=== PATIENT | female | born 1970 | race Native Hawaiian/Other Pacific Islander ===

== ENCOUNTER 2016-07-05 10:42 | Outpatient (CLI) | payer OTHER ==
[2016-07-05 11:13] LABS: POTASSIUM 3.8 mmol/L (3.6-5.2); SODIUM 136 mmol/L (136-145)
== END 2016-07-05 19:14 | disposition home or self-care (01) ==
LOC: LABW 10:42
PROVIDERS: Internal Medicine Endocrinology, Diabetes & Metabolism
DX: E21.0 Primary hyperparathyroidism (principal)
CPT/HCPCS: 36415; 80053; 82306; 82330; 82340

== ENCOUNTER 2016-07-11 09:18 | Outpatient (CLI) | payer OTHER ==
[~2016-07-11] VITALS: Ht 165.1 cm; Wt 127.5 kg
[2016-07-11 10:20] VITALS: BP 119/64; TEMP 99
[2016-07-11 13:10] VITALS: BP 112/75; TEMP 98.6
== END 2016-07-11 18:59 | disposition home or self-care (01) ==
LOC: INF 09:18 → US 09:18 → INF 18:59
DX: E21.0 Primary hyperparathyroidism (principal); N20.0 Calculus of kidney; E87.6 Hypokalemia
CPT/HCPCS: 96365; 96366; J0610

== ENCOUNTER 2016-07-12 11:29 | Outpatient (CLI) | payer OTHER | END 2016-07-12 19:23 | disposition home or self-care (01) | LOC: LABW 11:29 | DX: E87.6 Hypokalemia (principal) | CPT/HCPCS: 36415; 82310 ==

== ENCOUNTER 2016-07-16 15:10 | Observation (INO) | payer OTHER ==
[~2016-07-16] VITALS: Ht 165.1 cm; Wt 125.2 kg
[2016-07-16 16:40] VITALS: BP 126/67; TEMP 98.8; Ht 165.1 cm; Wt 125.2 kg
[2016-07-16] MEDS ORDERED: TIZA4TAB5 PO (16:57)
[2016-07-16] MEDS ORDERED: UNITH DIRECT25 MCG PO (16:58)
[2016-07-16] MEDS ORDERED: HYDROCHLOROT12.5 M1 PO (16:58)
[2016-07-16] MEDS ORDERED: LISI10TA11 PO (16:58)
[2016-07-16] MEDS ORDERED: GRALISE600 MG PO (16:58)
[2016-07-16] MEDS ORDERED: PROVENTIL IN (16:59)
[2016-07-16] MEDS ORDERED: ALBU90AE13 INH (16:59)
[2016-07-16] MEDS ORDERED: CALCIUM + D600 MG PO (16:59)
[2016-07-16 17:00] LABS: PLATELET COUNT 253 K/uL (152-353)
[2016-07-16 17:14] LABS: POTASSIUM 3.5 mmol/L (3.6-5.2); SODIUM 137 mmol/L (136-145)
[2016-07-16 19:59] VITALS: BP 119/69; TEMP 97.4
[2016-07-17 00:02] VITALS: BP 106/49; TEMP 97.9
[2016-07-17 04:00] VITALS: BP 116/62; TEMP 98.1
[2016-07-17 07:56] VITALS: BP 93/50; TEMP 98.3
[2016-07-17 08:38] LABS: PLATELET COUNT 247 K/uL (152-353)
[2016-07-17 09:28] LABS: POTASSIUM 3.6 mmol/L (3.6-5.2); SODIUM 135 mmol/L (136-145)
--- NOTE | 2016-07-17 11:53 | NUR ---
IV SITE D/C'D WITH TIP INTACT AND SITE CARE DONE. D/C INSTRUCTIONS GIVEN TO PT AND SHE VERBALIZES UNDERSTANDING. PT AMBULATORY OUT WITH NAD. PT REFUSED W/C
== END 2016-07-17 12:00 | disposition home or self-care (01) ==
LOC: MED/SURG 15:10
PROVIDERS: ADMIT Family Medicine
DX: R07.89 Other chest pain (principal); J44.9 Chronic obstructive pulmonary disease, unspecified; E21.3 Hyperparathyroidism, unspecified; R25.2 Cramp and spasm; E83.51 Hypocalcemia
CPT/HCPCS: 36415; 36591; 80053; 82330; 82550; 83735; 84484; 85027; 85610; 85730; 93005; 94760; 96372; 99220; G0378; G0379; J1650

== ENCOUNTER 2016-09-26 17:00 | Outpatient (CLI) | payer OTHER ==
[~2016-09-26 17:00] MED LIST: ALBU90AE13 INH; CALCIUM + D600 MG PO; GRALISE600 MG PO; HYDROCHLOROT12.5 M1 PO; LISI10TA11 PO; PROVENTIL IN; TIZA4TAB5 PO; UNITH DIRECT25 MCG PO
== END 2016-09-26 18:00 | disposition home or self-care (01) ==
LOC: RAD 17:00
DX: J20.9 Acute bronchitis, unspecified (principal)

== ENCOUNTER 2016-11-05 16:54 | Outpatient (CLI) | payer OTHER | END 2016-11-05 19:15 | disposition home or self-care (01) | LOC: CT 16:54 | DX: N20.0 Calculus of kidney (principal) ==

== ENCOUNTER 2017-12-02 19:31 | Observation (INO) | payer OTHER ==
[~2017-12-02] VITALS: Ht 165.1 cm; Wt 115.0 kg
[2017-12-02 19:55] VITALS: BP 160/94; TEMP 98.3
[2017-12-02 20:45] LABS: PLATELET COUNT 273 K/uL (152-353)
[2017-12-02 20:54] LABS: POTASSIUM 3.8 mmol/L (3.6-5.2)
[2017-12-03] VITALS (14 sets, daily range): BP systolic 108–137; BP diastolic 57–99; TEMP 97.8–99.6; Ht 165.1 cm; Wt 115.0 kg
[2017-12-03] MEDS ORDERED: MONT10TA PO (01:39)
[2017-12-03] MEDS ORDERED: UNITH DIRECT50 MCG PO (01:40)
[2017-12-03] MEDS ORDERED: RANI150T78 PO (01:41)
[2017-12-03] MEDS ORDERED: TIZA4TAB5 PO (01:43)
[2017-12-03] MEDS ORDERED: DULOXETINE HCL60 MG PO (01:44)
[2017-12-03] MEDS ORDERED: HYDR10TA47A PO (01:46)
[2017-12-03 05:26] LABS: PLATELET COUNT 220 K/uL (152-353)
[2017-12-04] VITALS: BP 109/59; TEMP 98.7
[2017-12-04 04:09] VITALS: BP 118/61; TEMP 99.3
[2017-12-04 04:34] LABS: PLATELET COUNT 246 K/uL (152-353)
[2017-12-04 04:47] LABS: POTASSIUM 3.5 mmol/L (3.6-5.2)
[2017-12-04 07:53] VITALS: BP 108/54; TEMP 98.2
== END 2017-12-04 12:11 | disposition home or self-care (01) ==
LOC: ED 19:31 → MED/SURG 23:44
PROVIDERS: Family Medicine; ADMIT Student in an Organized Health Care Education/Training Program
PROC: 0DTJ4ZZ Resection of Appendix, Percutaneous Endoscopic Approach (ICD-10-PCS; principal; 2017-12-03)
DX: K35.89 Other acute appendicitis (principal); M32.8 Other forms of systemic lupus erythematosus; G89.29 Other chronic pain; R10.31 Right lower quadrant pain
CPT/HCPCS: 36415; 80048; 80053; 81000; 82150; 83690; 85027; 96361; 96365; 96372; 96375; 99220; 99284; G0378; J0132; J0330; J0461; J1100; J1170; J1644; J1885; J2001; J2250; J2405; J2543; J2550; J2704; J2710; J3010; J3490; Q9963

== ENCOUNTER 2018-01-24 14:29 | Outpatient (CLI) | payer OTHER ==
[~2018-01-24 14:29] MED LIST changes: +DULOXETINE HCL60 MG PO; +HYDR10TA47A PO; +MONT10TA PO; +RANI150T78 PO; +UNITH DIRECT50 MCG PO
[2018-01-24 15:31] LABS: PLATELET COUNT 239 K/uL (152-353)
[2018-01-24 15:42] LABS: POTASSIUM 3.6 mmol/L (3.6-5.2)
== END 2018-01-24 23:26 | disposition home or self-care (01) ==
LOC: LABW 14:29
PROVIDERS: Family Medicine
DX: I10 Essential (primary) hypertension (principal); E21.3 Hyperparathyroidism, unspecified; E78.5 Hyperlipidemia, unspecified; E55.9 Vitamin D deficiency, unspecified; E53.9 Vitamin B deficiency, unspecified
CPT/HCPCS: 36415; 80053; 80061; 81000; 82306; 82607; 84443; 85027

== ENCOUNTER 2018-02-06 08:03 | Outpatient (CLI) | payer OTHER | END 2018-02-06 22:07 | disposition home or self-care (01) | LOC: RESP 08:03 | DX: I10 Essential (primary) hypertension (principal) | CPT/HCPCS: 93306 ==

== ENCOUNTER 2018-03-17 14:28 | Emergency (ER) | payer OTHER ==
[~2018-03-17] VITALS: Ht 165.1 cm; Wt 120.2 kg
[2018-03-17 14:35] VITALS: TEMP 98
[2018-03-17 15:16] LABS: PLATELET COUNT 239 K/uL (152-353)
[2018-03-17 15:19] LABS: POTASSIUM 3.7 mmol/L (3.6-5.2); SODIUM 142 mmol/L (136-145)
[2018-03-17 17:04] VITALS: BP 131/84
== END 2018-03-17 17:04 | disposition home or self-care (01) ==
LOC: ED 14:28
PROVIDERS: Emergency Medicine
DX: R07.89 Other chest pain (principal)
CPT/HCPCS: 36415; 80053; 82550; 84484; 85027; 93005; 99283

== ENCOUNTER 2018-04-06 17:44 | Emergency (ER) | payer OTHER ==
[~2018-04-06] VITALS: Ht 165.1 cm; Wt 120.2 kg
[2018-04-06 18:51] LABS: PLATELET COUNT 254 K/uL (152-353)
[2018-04-06 19:07] LABS: POTASSIUM 3.6 mmol/L (3.6-5.2)
[2018-04-06 20:31] VITALS: BP 117/76; TEMP 98.3
== END 2018-04-06 20:32 | disposition home or self-care (01) ==
LOC: ED 17:44
PROVIDERS: Family Medicine
DX: K44.9 Diaphragmatic hernia without obstruction or gangrene (principal); M47.896 Other spondylosis, lumbar region
CPT/HCPCS: 80053; 81000; 85027; 96372; 96374; 99284; J2175; J2405

== ENCOUNTER 2018-07-10 14:29 | Outpatient (CLI) | payer OTHER ==
[2018-07-10 15:11] LABS: POTASSIUM 3.8 mmol/L (3.6-5.2)
[2018-07-10 16:10] LABS: PLATELET COUNT 273 K/uL (152-353)
== END 2018-07-10 20:41 | disposition home or self-care (01) ==
LOC: LABW 14:29
PROVIDERS: Family Medicine
DX: N95.9 Unspecified menopausal and perimenopausal disorder (principal); R10.0 Acute abdomen
CPT/HCPCS: 36415; 80053; 82306; 82607; 82670; 83001; 84402; 84403; 84436; 84443; 84481; 85027; 86140; 86318; 86376

== ENCOUNTER 2018-07-16 11:11 | Outpatient (CLI) | payer OTHER | END 2018-07-16 19:46 | disposition home or self-care (01) | LOC: RAD 11:11 | DX: M54.17 Radiculopathy, lumbosacral region (principal) ==

== ENCOUNTER 2018-09-02 11:47 | Emergency (ER) | payer OTHER ==
[~2018-09-02] VITALS: Ht 165.1 cm; Wt 122.5 kg
[2018-09-02 11:54] VITALS: TEMP 97.7
[2018-09-02] MEDS ORDERED: UNITH DIRECT75 MCG PO (12:08)
[2018-09-02] MEDS ORDERED: SIMV20TA2 PO (12:09)
[2018-09-02 13:00] LABS: PLATELET COUNT 249 K/uL (152-353)
[2018-09-02 13:10] LABS: POTASSIUM 3.7 mmol/L (3.6-5.2)
[2018-09-02 15:20] VITALS: BP 145/68
== END 2018-09-02 15:20 | disposition home or self-care (01) ==
LOC: ED 11:47
PROVIDERS: Family Medicine
DX: K29.70 Gastritis, unspecified, without bleeding (principal); M54.9 Dorsalgia, unspecified
CPT/HCPCS: 36415; 80053; 81000; 85027; 96374; 96375; 99284; J1885; J2405; J3490

== ENCOUNTER 2018-09-09 17:27 | Outpatient (CLI) | payer OTHER ==
[~2018-09-09 17:27] MED LIST changes: +SIMV20TA2 PO; +UNITH DIRECT75 MCG PO
[2018-09-09 18:01] LABS: PLATELET COUNT 271 K/uL (152-353)
== END 2018-09-09 20:33 | disposition home or self-care (01) ==
LOC: LABW 17:27
PROVIDERS: Nurse Practitioner Family
DX: R53.83 Other fatigue (principal); E86.0 Dehydration
CPT/HCPCS: 36415; 81000; 85027; 85651; 86060; 86140

== ENCOUNTER 2018-11-10 16:16 | Outpatient (CLI) | payer OTHER ==
[2018-11-10 16:48] LABS: PLATELET COUNT 273 K/uL (152-353)
[2018-11-10 17:07] LABS: POTASSIUM 4.2 mmol/L (3.6-5.2)
== END 2018-11-10 23:28 | disposition home or self-care (01) ==
LOC: LABW 16:16
PROVIDERS: Family Medicine
DX: N95.9 Unspecified menopausal and perimenopausal disorder (principal)
CPT/HCPCS: 36415; 80053; 82306; 82607; 82670; 83001; 84402; 84403; 84436; 84443; 84481; 85027; 86140; 86376

== ENCOUNTER 2018-12-18 15:18 | Outpatient (CLI) | payer OTHER | END 2018-12-18 20:21 | disposition home or self-care (01) | LOC: LABW 15:18 | DX: R79.82 Elevated C-reactive protein (CRP) (principal) | CPT/HCPCS: 36415; 86038; 86431 ==

== ENCOUNTER 2019-03-04 08:59 | Outpatient (CLI) | payer OTHER | END 2019-03-04 19:04 | disposition home or self-care (01) | LOC: RESP 08:59 | DX: I34.1 Nonrheumatic mitral (valve) prolapse (principal) | CPT/HCPCS: 93306 ==

== ENCOUNTER 2019-07-05 01:50 | Emergency (ER) | payer OTHER ==
[~2019-07-05] VITALS: Ht 165.1 cm; Wt 122.5 kg
[2019-07-05 02:13] LABS: PLATELET COUNT 246 K/uL (152-353)
[2019-07-05 02:27] LABS: POTASSIUM 3.8 mmol/L (3.6-5.2)
[2019-07-05 03:29] VITALS: BP 117/69; TEMP 97.7
== END 2019-07-05 03:29 | disposition home or self-care (01) ==
LOC: ED 01:50
PROVIDERS: Hospitalist
DX: K21.9 Gastro-esophageal reflux disease without esophagitis (principal); K29.70 Gastritis, unspecified, without bleeding
CPT/HCPCS: 36415; 80053; 81000; 81025; 82150; 83690; 85027; 96374; 96375; 99284; J1885; J2270; J2405

== ENCOUNTER 2020-06-24 11:32 | Observation (INO) | payer OTHER ==
[~2020-06-24] VITALS: Ht 172.7 cm; Wt 133.0 kg
[2020-06-24 12:14] VITALS: BP 155/81; TEMP 99.3; Ht 172.7 cm; Wt 133.0 kg
[2020-06-24] MEDS ORDERED: PAROXETINE40 MG PO (12:34)
[2020-06-24] MEDS ORDERED: GRALISE600 MG PO (12:35)
[2020-06-24] MEDS ORDERED: HYDROCHLOROT12.5 M1 PO (12:35)
[2020-06-24] MEDS ORDERED: BUDE1AER5 INH (12:37)
[2020-06-24] MEDS ORDERED: PANTOPRAZOLE 40MG TA PO (12:38)
[2020-06-24] MEDS ORDERED: ALBUTEROL0.083 % PO (12:40)
[2020-06-24 12:42] LABS: PLATELET COUNT 255 K/uL (152-353)
[2020-06-24 13:21] LABS: POTASSIUM 3.4 mmol/L (3.6-5.2)
[2020-06-24 16:08] VITALS: BP 135/69; TEMP 98.2
[2020-06-24 20:00] VITALS: BP 147/80; TEMP 98
[2020-06-25] VITALS: BP 125/74; TEMP 98.6
[2020-06-25 04:00] VITALS: BP 138/72; TEMP 97.9
[2020-06-25 07:42] VITALS: BP 154/81; TEMP 97.8
[2020-06-25 09:28] LABS: PLATELET COUNT 240 K/uL (152-353)
[2020-06-25 09:52] LABS: POTASSIUM 4.2 mmol/L (3.6-5.2)
[2020-06-25 12:00] VITALS: BP 122/61; TEMP 98
== END 2020-06-25 17:05 | disposition home or self-care (01) ==
LOC: MED/SURG 11:32
PROVIDERS: ADMIT Family Medicine; ATTEND Family Medicine
DX: L03.113 Cellulitis of right upper limb (principal); W55.01XA Bitten by cat, initial encounter; R59.0 Localized enlarged lymph nodes; Y93.89 Activity, other specified; Y92.89 Other specified places as the place of occurrence of the external cause
CPT/HCPCS: 80053; 82550; 83735; 84100; 84439; 84443; 85027; 85652; 86140; 87040; 87635; 93005; 99220; G0378; G0379; J1885; J2543; J2920; J3490; U0003

== ENCOUNTER 2020-08-03 10:10 | Outpatient (CLI) | payer OTHER ==
[~2020-08-03 10:10] MED LIST changes: +ALBUTEROL0.083 % PO; +BUDE1AER5 INH; +PANTOPRAZOLE 40MG TA PO; +PAROXETINE40 MG PO
== END 2020-08-03 22:10 | disposition home or self-care (01) ==
LOC: INF 10:10
PROVIDERS: ATTEND Internal Medicine
DX: Z23 Encounter for immunization (principal)
CPT/HCPCS: 96372

== ENCOUNTER 2020-08-15 17:28 | Outpatient (CLI) | payer OTHER | END 2020-08-15 21:41 | disposition home or self-care (01) | LOC: RAD 17:28 | PROVIDERS: ATTEND Nurse Practitioner Family | DX: M25.561 Pain in right knee (principal) ==

== ENCOUNTER 2020-08-25 13:23 | Outpatient (CLI) | payer OTHER | END 2020-08-25 22:22 | disposition home or self-care (01) | LOC: LABW 13:23 | PROVIDERS: ATTEND Nurse Practitioner Family | DX: D51.9 Vitamin B12 deficiency anemia, unspecified (principal); E55.9 Vitamin D deficiency, unspecified; M47.816 Spondylosis without myelopathy or radiculopathy, lumbar region; R70.0 Elevated erythrocyte sedimentation rate | CPT/HCPCS: 82306; 82607; 82746; 83918; 85652; 86140 ==

== ENCOUNTER 2020-08-25 13:30 | Outpatient (CLI) | payer OTHER | END 2020-08-25 22:23 | disposition home or self-care (01) | LOC: INF | PROVIDERS: ATTEND Internal Medicine | DX: Z23 Encounter for immunization (principal) | CPT/HCPCS: 96372 ==

== ENCOUNTER 2020-08-31 10:28 | Day surgery (SDC) | payer OTHER ==
[2020-08-25 13:17] LABS: PLATELET COUNT 327 K/uL (152-353)
[2020-08-25 13:30] LABS: POTASSIUM 3.3 mmol/L (3.6-5.2)
== END 2020-08-31 13:30 | disposition home or self-care (01) ==
LOC: OR 10:28
PROVIDERS: ATTEND Internal Medicine Gastroenterology
PROC: 0DB68ZZ Excision of Stomach, Via Natural or Artificial Opening Endoscopic (ICD-10-PCS; principal; 2020-08-31)
PROC: 0DB88ZZ Excision of Small Intestine, Via Natural or Artificial Opening Endoscopic (ICD-10-PCS; 2020-08-31)
DX: K21.00 Gastro-esophageal reflux disease with esophagitis, without bleeding (principal); K31.84 Gastroparesis; K29.50 Unspecified chronic gastritis without bleeding; R10.12 Left upper quadrant pain; R10.13 Epigastric pain; R11.2 Nausea with vomiting, unspecified; R19.7 Diarrhea, unspecified; Z20.822 Contact with and (suspected) exposure to COVID-19
CPT/HCPCS: 80053; 85027; 87635; J2704; U0003

== ENCOUNTER 2020-09-21 10:44 | Day surgery (SDC) | payer OTHER ==
[~2020-09-21] VITALS: Ht 30.5 cm; Wt 0.5 kg
== END 2020-09-21 13:32 | disposition home or self-care (01) ==
LOC: OR 10:44
PROVIDERS: ATTEND Internal Medicine Gastroenterology
PROC: 0DJD8ZZ Inspection of Lower Intestinal Tract, Via Natural or Artificial Opening Endoscopic (ICD-10-PCS; principal; 2020-09-21)
DX: K57.30 Diverticulosis of large intestine without perforation or abscess without bleeding (principal); K64.8 Other hemorrhoids; Z12.11 Encounter for screening for malignant neoplasm of colon; K92.1 Melena; K59.09 Other constipation; Z20.822 Contact with and (suspected) exposure to COVID-19
CPT/HCPCS: 87635; J2001; J2704; U0003

== ENCOUNTER 2020-09-29 15:15 | Outpatient (CLI) | payer OTHER | END 2020-09-29 23:12 | disposition home or self-care (01) | LOC: MRI 15:15 | PROVIDERS: ATTEND Physician Assistant | DX: M25.561 Pain in right knee (principal) ==

== ENCOUNTER 2020-10-18 17:28 | Outpatient (CLI) | payer OTHER | END 2020-10-18 22:32 | disposition home or self-care (01) | LOC: RAD 17:28 | PROVIDERS: ATTEND Nurse Practitioner Primary Care | DX: M25.551 Pain in right hip (principal); M25.552 Pain in left hip; M54.2 Cervicalgia ==

== ENCOUNTER 2020-10-19 11:44 | Outpatient (CLI) | payer OTHER ==
[2020-10-19 13:37] LABS: POTASSIUM 3.6 mmol/L (3.6-5.2)
== END 2020-10-19 21:01 | disposition home or self-care (01) ==
LOC: LABW 11:44
PROVIDERS: ATTEND Nurse Practitioner Primary Care
DX: I10 Essential (primary) hypertension (principal); E21.3 Hyperparathyroidism, unspecified; Z13.220 Encounter for screening for lipoid disorders; Z13.1 Encounter for screening for diabetes mellitus; R53.83 Other fatigue; Z79.899 Other long term (current) drug therapy
CPT/HCPCS: 36415; 80053; 80061; 81000; 82306; 82607; 83036; 84443

== ENCOUNTER 2020-10-27 16:42 | Outpatient (CLI) | payer OTHER | END 2020-10-27 22:54 | disposition home or self-care (01) | LOC: RAD 16:42 | PROVIDERS: ATTEND Nurse Practitioner Family | DX: M54.17 Radiculopathy, lumbosacral region (principal) ==

== ENCOUNTER 2020-11-08 14:36 | Outpatient (CLI) | payer OTHER | END 2020-11-08 18:00 | disposition home or self-care (01) | LOC: LABW 14:36 | PROVIDERS: ATTEND Internal Medicine Gastroenterology | DX: R10.9 Unspecified abdominal pain (principal) | CPT/HCPCS: 36415; 86140 ==

== ENCOUNTER 2020-11-14 12:54 | Outpatient (CLI) | payer OTHER | END 2020-11-14 23:59 | disposition home or self-care (01) | LOC: MRI 12:54 | PROVIDERS: ATTEND Nurse Practitioner Family | DX: G56.23 Lesion of ulnar nerve, bilateral upper limbs (principal); G56.13 Other lesions of median nerve, bilateral upper limbs; R25.1 Tremor, unspecified | CPT/HCPCS: 95885; 95911 ==

== ENCOUNTER 2020-11-15 13:03 | Outpatient (CLI) | payer OTHER | END 2020-11-15 23:59 | disposition home or self-care (01) | LOC: EMG 13:03 | PROVIDERS: ATTEND Nurse Practitioner Primary Care | DX: G56.03 Carpal tunnel syndrome, bilateral upper limbs (principal) | CPT/HCPCS: 95885; 95911 ==

== ENCOUNTER 2020-11-17 13:40 | Emergency (ER) | payer OTHER ==
[2020-11-23 15:23] LABS: POTASSIUM 3.6 mmol/L (3.6-5.2)
[2020-11-23 15:26] LABS: PLATELET COUNT 244 K/uL (152-353)
== END 2020-11-17 20:00 | disposition home or self-care (01) ==
LOC: ED 13:40
PROVIDERS: Emergency Medicine
DX: R10.84 Generalized abdominal pain (principal); E66.8 Other obesity; Z98.890 Other specified postprocedural states
CPT/HCPCS: 36415; 80053; 81000; 82150; 83690; 85027; 86318; 96374; 96375; 99284; J2270; J2405; Q9963

== ENCOUNTER 2020-12-15 11:02 | Outpatient (CLI) | payer OTHER | END 2020-12-15 22:06 | disposition home or self-care (01) | LOC: MRI 11:02 | PROVIDERS: ATTEND Physician Assistant Medical | DX: M47.812 Spondylosis without myelopathy or radiculopathy, cervical region (principal) ==

== ENCOUNTER 2021-02-16 07:58 | Outpatient (CLI) | payer OTHER ==
[~2021-02-16] VITALS: Ht 165.1 cm; Wt 126.6 kg
== END 2021-02-16 16:00 | disposition home or self-care (01) ==
LOC: NM 07:58
PROVIDERS: ATTEND Internal Medicine
DX: R94.31 Abnormal electrocardiogram [ECG] [EKG] (principal); R07.89 Other chest pain; Z01.810 Encounter for preprocedural cardiovascular examination; I10 Essential (primary) hypertension
CPT/HCPCS: A9500; J2785

== ENCOUNTER 2021-02-20 14:42 | Outpatient (CLI) | payer OTHER | END 2021-02-20 21:11 | disposition home or self-care (01) | LOC: RESP 14:42 | PROVIDERS: ATTEND Specialist | DX: R07.89 Other chest pain (principal); I10 Essential (primary) hypertension; R94.31 Abnormal electrocardiogram [ECG] [EKG]; Z01.810 Encounter for preprocedural cardiovascular examination ==

== ENCOUNTER 2021-02-27 15:10 | Outpatient (CLI) | payer OTHER ==
[2021-02-27 15:47] LABS: POTASSIUM 3.2 mmol/L (3.6-5.2)
[2021-02-27 15:51] LABS: PLATELET COUNT 278 K/uL (152-353)
== END 2021-02-27 19:40 | disposition home or self-care (01) ==
LOC: LABW 15:10
PROVIDERS: ATTEND Nurse Practitioner Adult Health
DX: Z01.810 Encounter for preprocedural cardiovascular examination (principal); R94.39 Abnormal result of other cardiovascular function study
CPT/HCPCS: 36415; 80048; 85027

== ENCOUNTER 2021-03-15 09:59 | Outpatient (CLI) | payer OTHER ==
[2021-03-15 10:27] LABS: POTASSIUM 3.7 mmol/L (3.6-5.2)
== END 2021-03-15 19:17 | disposition home or self-care (01) ==
LOC: LABW 09:59
PROVIDERS: ATTEND Nurse Practitioner Adult Health
DX: R35.89 Other polyuria (principal); Z79.899 Other long term (current) drug therapy
CPT/HCPCS: 36415; 80048

== ENCOUNTER 2021-03-31 14:03 | Outpatient (CLI) | payer OTHER | END 2021-03-31 20:51 | disposition home or self-care (01) | LOC: MRI 14:03 | PROVIDERS: ATTEND Physical Medicine & Rehabilitation Pain Medicine | DX: M54.16 Radiculopathy, lumbar region (principal) ==

== ENCOUNTER 2021-04-10 08:58 | Emergency (ER) | payer OTHER ==
[~2021-04-10] VITALS: Ht 165.1 cm; Wt 127.0 kg
[2021-04-10 09:08] VITALS: TEMP 97.8
[2021-04-10 10:32] VITALS: BP 166/74
== END 2021-04-10 10:32 | disposition home or self-care (01) ==
LOC: ED 08:58
DX: R30.0 Dysuria (principal); R09.81 Nasal congestion; Z98.890 Other specified postprocedural states
CPT/HCPCS: 81000; 96372; 99283; J0696

== ENCOUNTER 2021-05-29 15:52 | Outpatient (CLI) | payer OTHER | END 2021-05-29 19:58 | disposition home or self-care (01) | LOC: RAD 15:52 | PROVIDERS: ATTEND Physician Assistant Medical | DX: M54.12 Radiculopathy, cervical region (principal) ==

== ENCOUNTER 2021-09-27 12:25 | Outpatient (CLI) | payer OTHER | END 2021-09-27 18:54 | disposition home or self-care (01) | LOC: RAD 12:25 | PROVIDERS: ATTEND Nurse Practitioner Family | DX: M25.521 Pain in right elbow (principal); M25.522 Pain in left elbow ==

== ENCOUNTER 2021-12-27 09:06 | Outpatient (CLI) | payer OTHER | END 2021-12-27 19:21 | disposition home or self-care (01) | LOC: US 09:06 | PROVIDERS: ATTEND Nurse Practitioner Family | DX: R90.82 White matter disease, unspecified (principal) ==

== ENCOUNTER 2022-04-24 12:49 | Outpatient (CLI) | payer OTHER | END 2022-04-24 19:39 | disposition home or self-care (01) | LOC: US 12:49 | PROVIDERS: ATTEND Nurse Practitioner Family | DX: E04.1 Nontoxic single thyroid nodule (principal) ==

== ENCOUNTER 2022-06-08 12:30 | Outpatient (CLI) | payer OTHER | END 2022-06-08 19:18 | disposition home or self-care (01) | LOC: MRI 12:30 | PROVIDERS: ATTEND Nurse Practitioner Family | DX: G89.4 Chronic pain syndrome (principal); M54.16 Radiculopathy, lumbar region; R25.2 Cramp and spasm | CPT/HCPCS: 36415; 82085; 82550; 82607; 82746; 83519; 84425; 85652; 86038; 86235; 86334 ==

== ENCOUNTER 2022-11-07 09:52 | Outpatient (CLI) | payer OTHER | END 2022-11-07 18:53 | disposition home or self-care (01) | LOC: US 09:52 | PROVIDERS: ATTEND Nurse Practitioner Family | DX: R10.12 Left upper quadrant pain (principal) ==

== ENCOUNTER 2022-11-26 07:10 | Observation (INO) | payer OTHER ==
[~2022-11-26] VITALS: Ht 165.1 cm; Wt 125.3 kg
[2022-11-26 07:19] VITALS: BP 166/107; TEMP 99.1
[2022-11-26 07:39] LABS: POTASSIUM 3.8 mmol/L (3.6-5.2)
[2022-11-26 07:47] LABS: PLATELET COUNT 258 K/uL (152-353)
[2022-11-26 08:58] VITALS: BP 144/85
[2022-11-26 09:58] VITALS: BP 150/88
[2022-11-26 10:58] VITALS: BP 116/66; TEMP 99.2; Ht 165.1 cm; Wt 125.3 kg
[2022-11-26] MEDS ORDERED: BACLOFEN10 MG PO (12:15)
[2022-11-26] MEDS ORDERED: DEXL60CA4 PO (12:15)
[2022-11-26] MEDS ORDERED: METO25TA2 PO (12:16)
[2022-11-26] MEDS ORDERED: LISI20TA11 PO (12:17)
[2022-11-26] MEDS ORDERED: CYCLOBENZAPRINE5 MG PO (12:17)
[2022-11-26] MEDS ORDERED: VENLAFAXINE ER PO (12:18)
[2022-11-26] MEDS ORDERED: CETI10TA PO (12:19)
[2022-11-26] MEDS ORDERED: LEVO0.1T6 PO (12:19)
[2022-11-26] MEDS ORDERED: TYLENOL PM PO (12:21)
[2022-11-26] MEDS ORDERED: ESTR1TAB13 PO (12:22)
[2022-11-26] MEDS ORDERED: DIPH25CA90 PO (12:22)
[2022-11-26] MEDS ORDERED: TIZANIDINE HYDRO6 MG PO (12:23)
[2022-11-26] MEDS ORDERED: BREZTRI AEROSPH1 AER INH (12:24)
[2022-11-26] MEDS ORDERED: SIMV40TA57 PO (12:24)
[2022-11-26] MEDS ORDERED: ALBU90AE13 INH (12:25)
[2022-11-26] MEDS ORDERED: NITR0.4S2 SL (12:28)
[2022-11-26 16:04] VITALS: BP 125/67; TEMP 98.4
[2022-11-26 20:00] VITALS: BP 141/82; TEMP 98.8
[2022-11-27] VITALS: BP 129/65; TEMP 98.8
[2022-11-27 04:00] VITALS: BP 125/65; TEMP 98.6
[2022-11-27 08:14] VITALS: BP 154/78; TEMP 99
[2022-11-27 12:02] VITALS: BP 146/54; TEMP 98.8
[2022-11-27 16:00] VITALS: BP 155/76; TEMP 99.1
[2022-11-27 20:00] VITALS: BP 136/73; TEMP 98.7
[2022-11-28] VITALS: BP 148/80; TEMP 98.6
[2022-11-28 04:00] VITALS: BP 129/66; TEMP 98.7
[2022-11-28 05:20] LABS: PLATELET COUNT 216 K/uL (152-353)
[2022-11-28 05:40] LABS: POTASSIUM 3.3 mmol/L (3.6-5.2)
[2022-11-28 07:19] VITALS: BP 151/67; TEMP 98.6
[2022-11-28 11:19] VITALS: BP 163/84; TEMP 99.3
[2022-11-28] MEDS ORDERED: REGLAN 10MG TAB PO (13:08)
== END 2022-11-28 13:48 | disposition home or self-care (01) ==
LOC: ED 07:10 → MED/SURG 09:47
PROVIDERS: Family Medicine; ADMIT Internal Medicine; ATTEND Internal Medicine
DX: K31.84 Gastroparesis (principal); R11.2 Nausea with vomiting, unspecified; R10.9 Unspecified abdominal pain; K21.9 Gastro-esophageal reflux disease without esophagitis; G89.29 Other chronic pain; Z96.82 Presence of neurostimulator
CPT/HCPCS: 36415; 80053; 81002; 82150; 82948; 83690; 83735; 84100; 84443; 85027; 86140; 96361; 96365; 96367; 96372; 96374; 96375; 96376; 99221; 99284; G0378; J1200; J1650; J2270; J2405; J2550; J3490

== ENCOUNTER 2023-07-05 13:45 | Outpatient (CLI) | payer OTHER ==
[~2023-07-05 13:45] MED LIST changes: +BACLOFEN10 MG PO; +BREZTRI AEROSPH1 AER INH; +CETI10TA PO; +CYCLOBENZAPRINE5 MG PO; +DEXL60CA4 PO; +DIPH25CA90 PO; +ESTR1TAB13 PO; +LEVO0.1T6 PO; +LISI20TA11 PO; +METO25TA2 PO; +NITR0.4S2 SL; +REGLAN 10MG TAB PO; +SIMV40TA57 PO; +TIZANIDINE HYDRO6 MG PO; +TYLENOL PM PO; +VENLAFAXINE ER PO
== END 2023-07-05 20:11 | disposition home or self-care (01) ==
LOC: MAMMO 13:45
PROVIDERS: ATTEND Nurse Practitioner Family
DX: Z12.31 Encounter for screening mammogram for malignant neoplasm of breast (principal)